=== PATIENT | female | born 1960 | race Caucasian/White ===

== ENCOUNTER → 2020-06-13 | Day surgery (SDC) | payer OTHER ==
[2020-06-07 14:53] VITALS: BMI 26.6
[~2020-06-13] MED LIST: LIDOCAINE HCL 2% JELLY 10 ML CARTRIDGE ONE
[2020-06-13 08:35] VITALS: TEMP 97.8
[2020-06-13 10:14] VITALS: BP 137/99; PULSE 90
== END | disposition home or self-care (01) ==
LOC: JASU-ENDO 07:24
PROVIDERS: ATTEND Internal Medicine Gastroenterology
PROC: 06LY4CC Occlusion of Hemorrhoidal Plexus with Extraluminal Device, Percutaneous Endoscopic Approach (ICD-10-PCS; principal; 2020-06-13 08:00)
DX: K64.8 Other hemorrhoids (principal)
CPT/HCPCS: 82962

== ENCOUNTER 2020-12-01 04:19 | Day surgery (SDC) | payer OTHER ==
[2020-11-27 14:38] VITALS: BMI 26.2
[2020-12-01] MEDS ORDERED: SODIUM CHLORIDE 0.9% P/F 10 ML VIAL IJ ONE (07:34)
[2020-12-01] MEDS ORDERED: LIDOCAINE HCL 1%, 10 MG/ML (20ML VIAL) INF ONE (15:40)
[2020-12-01] MEDS ORDERED: IOHEXOL 180 MG/1 ML ML IJ ONE (15:41)
[2020-12-01] MEDS ORDERED: DEXAMETHASONE SOD PHOSPHATE 20 MG/5 ML VIAL IM ONE (15:41)
[2020-12-01 16:10] VITALS: BP 154/89; PULSE 97; TEMP 97.7
== END 2020-12-01 16:50 | disposition home or self-care (01) ==
LOC: JASU-SURG 04:19
PROVIDERS: ATTEND Pain Medicine Pain Medicine
PROC: 3E0R33Z Introduction of Anti-inflammatory into Spinal Canal, Percutaneous Approach (ICD-10-PCS; 2020-12-01)
PROC: B01BYZZ Fluoroscopy of Spinal Cord using Other Contrast (ICD-10-PCS; 2020-12-01)
PROC: 3E0R3BZ Introduction of Anesthetic Agent into Spinal Canal, Percutaneous Approach (ICD-10-PCS; principal; 2020-12-01 16:00)
DX: M48.061 Spinal stenosis, lumbar region without neurogenic claudication (principal); M54.16 Radiculopathy, lumbar region
CPT/HCPCS: 76000-TC-FY

== ENCOUNTER → 2021-03-23 | Day surgery (SDC) | payer OTHER ==
[2021-03-22 12:12] VITALS: BMI 26.2
[~2021-03-23] MED LIST changes: +DEXAMETHASONE SOD PHOSPHATE/PF 10 MG/ML SDV ONE; -LIDOCAINE HCL 2% JELLY 10 ML CARTRIDGE ONE; +SODIUM CHLORIDE 0.9% P/F 10 ML VIAL IJ ONE
== END | disposition home or self-care (01) ==
LOC: JASU-SURG 04:09
PROVIDERS: ATTEND Pain Medicine Pain Medicine
DX: Z53.8 Procedure and treatment not carried out for other reasons (principal)

== ENCOUNTER 2021-04-06 04:57 | Day surgery (SDC) | payer OTHER ==
[2021-04-03 12:39] VITALS: BMI 26.6
[2021-04-06] MEDS ORDERED: DEXAMETHASONE SOD PHOSPHATE 10 MG/1 ML VIAL IVPUSH ONE (15:43)
[2021-04-06] MEDS ORDERED: IOHEXOL 180 MG/1 ML ML IJ ONE (15:43)
[2021-04-06] MEDS ORDERED: LIDOCAINE HCL 1% PRESERVATIVE FREE - 30ML VIAL IJ ONE (15:43)
[2021-04-06 17:33] VITALS: TEMP 97.8
[2021-04-06 17:40] VITALS: BP 140/80; PULSE 80
== END 2021-04-06 18:02 | disposition home or self-care (01) ==
LOC: JASU-SURG 04:57
PROVIDERS: ATTEND Pain Medicine Pain Medicine
PROC: 3E0R33Z Introduction of Anti-inflammatory into Spinal Canal, Percutaneous Approach (ICD-10-PCS; 2021-04-06)
PROC: B01BYZZ Fluoroscopy of Spinal Cord using Other Contrast (ICD-10-PCS; 2021-04-06)
PROC: 3E0R3BZ Introduction of Anesthetic Agent into Spinal Canal, Percutaneous Approach (ICD-10-PCS; principal; 2021-04-06 15:00)
DX: M54.16 Radiculopathy, lumbar region (principal)
CPT/HCPCS: J1100

== ENCOUNTER 2021-11-13 05:18 | Day surgery (SDC) | payer OTHER ==
[2021-11-09 16:44] VITALS: BMI 26.6
[2021-11-13 11:01] VITALS: TEMP 97.9
[2021-11-13 11:27] VITALS: BP 140/75
[2021-11-13 11:45] VITALS: PULSE 82
== END 2021-11-13 12:07 | disposition home or self-care (01) ==
LOC: JASU-ENDO 05:18
PROVIDERS: ATTEND Internal Medicine Gastroenterology
PROC: 0DBM8ZX Excision of Descending Colon, Via Natural or Artificial Opening Endoscopic, Diagnostic (ICD-10-PCS; 2021-11-13)
PROC: 0DBL8ZX Excision of Transverse Colon, Via Natural or Artificial Opening Endoscopic, Diagnostic (ICD-10-PCS; 2021-11-13)
PROC: 0DBN8ZX Excision of Sigmoid Colon, Via Natural or Artificial Opening Endoscopic, Diagnostic (ICD-10-PCS; 2021-11-13)
PROC: 0DBK8ZX Excision of Ascending Colon, Via Natural or Artificial Opening Endoscopic, Diagnostic (ICD-10-PCS; principal; 2021-11-13 09:30)
DX: Z12.11 Encounter for screening for malignant neoplasm of colon (principal); Z86.010 Personal history of colon polyps; K57.30 Diverticulosis of large intestine without perforation or abscess without bleeding; D12.2 Benign neoplasm of ascending colon; D12.4 Benign neoplasm of descending colon; D12.7 Benign neoplasm of rectosigmoid junction; D12.5 Benign neoplasm of sigmoid colon; D12.3 Benign neoplasm of transverse colon; K64.8 Other hemorrhoids; E11.9 Type 2 diabetes mellitus without complications; I10 Essential (primary) hypertension; D64.9 Anemia, unspecified; K21.9 Gastro-esophageal reflux disease without esophagitis
CPT/HCPCS: 88305-TC

== ENCOUNTER 2021-12-18 04:52 | Day surgery (SDC) | payer OTHER ==
[2021-12-12 15:29] VITALS: BMI 26.6
[2021-12-18 11:15] VITALS: TEMP 97.1
[2021-12-18 12:10] VITALS: BP 148/86; PULSE 79
== END 2021-12-18 12:12 | disposition home or self-care (01) ==
LOC: JASU-ENDO 04:52
PROVIDERS: ATTEND Internal Medicine Gastroenterology
PROC: 0DB78ZX Excision of Stomach, Pylorus, Via Natural or Artificial Opening Endoscopic, Diagnostic (ICD-10-PCS; 2021-12-18)
PROC: 0DB68ZX Excision of Stomach, Via Natural or Artificial Opening Endoscopic, Diagnostic (ICD-10-PCS; 2021-12-18)
PROC: 0DB38ZX Excision of Lower Esophagus, Via Natural or Artificial Opening Endoscopic, Diagnostic (ICD-10-PCS; 2021-12-18)
PROC: 0DB48ZX Excision of Esophagogastric Junction, Via Natural or Artificial Opening Endoscopic, Diagnostic (ICD-10-PCS; principal; 2021-12-18 10:30)
DX: K29.50 Unspecified chronic gastritis without bleeding (principal); D13.0 Benign neoplasm of esophagus; K44.9 Diaphragmatic hernia without obstruction or gangrene; K25.9 Gastric ulcer, unspecified as acute or chronic, without hemorrhage or perforation; E11.9 Type 2 diabetes mellitus without complications; I10 Essential (primary) hypertension; J44.9 Chronic obstructive pulmonary disease, unspecified; Z79.84 Long term (current) use of oral hypoglycemic drugs
CPT/HCPCS: 82962; 88104; 88305-TC; 88342-TC

== ENCOUNTER 2023-05-13 14:19 | Emergency (ER) | payer OTHER ==
[2023-05-13 14:29] VITALS: TEMP 98.7; BMI 25.7
[2023-05-13 17:13] VITALS: BP 158/94; PULSE 83; RESP 15
== END 2023-05-13 16:45 | disposition home or self-care (01) ==
LOC: JER 14:19
DX: F32.A Depression, unspecified (principal)
CPT/HCPCS: 99283-25

== ENCOUNTER 2023-06-03 05:26 | Day surgery (SDC) | payer OTHER ==
[2023-06-02 14:54] VITALS: BMI 22.4
[2023-06-03] MEDS ORDERED: LIDOCAINE HCL/PF 1% SDV 5ML VIAL ONE (07:53)
[2023-06-03] MEDS ORDERED: DEXAMETHASONE SOD PHOSPHATE 10 MG/1 ML VIAL ONE (07:54)
[2023-06-03] MEDS ORDERED: LIDOCAINE HCL 1% PRESERVATIVE FREE - 30ML VIAL IJ ONE (10:52)
[2023-06-03] MEDS ORDERED: IOHEXOL 180 MG/1 ML ML IJ ONE (10:53)
[2023-06-03] MEDS ORDERED: DEXAMETHASONE SOD PHOSPHATE 10 MG/1 ML VIAL IVPUSH ONE (10:54)
[2023-06-03 11:26] VITALS: TEMP 97
[2023-06-03] MEDS ORDERED: ACETAMINOPHEN 500 MG TABLET (FP) ONE (11:45)
[2023-06-03 12:42] VITALS: BP 142/80; PULSE 92; RESP 18
[2023-06-03] MEDS ORDERED: ACETAMINOPHEN 500 MG TABLET (FP) PO PRN (16:11)
== END 2023-06-03 12:45 | disposition home or self-care (01) ==
LOC: JASU-SURG 05:26
PROVIDERS: ATTEND Pain Medicine Pain Medicine
PROC: 3E0R3BZ Introduction of Anesthetic Agent into Spinal Canal, Percutaneous Approach (ICD-10-PCS; 2023-06-03)
PROC: 3E0R33Z Introduction of Anti-inflammatory into Spinal Canal, Percutaneous Approach (ICD-10-PCS; principal; 2023-06-03 11:15)
DX: M54.16 Radiculopathy, lumbar region (principal)
CPT/HCPCS: 76000-TC-FY; J1100

== ENCOUNTER 2023-12-26 04:08 | Day surgery (SDC) | payer OTHER ==
[2023-12-25 09:01] VITALS: BMI 23.3
[~2023-12-26 04:08] MED LIST changes: +ACETAMINOPHEN 500 MG TABLET (FP) PO PRN; -DEXAMETHASONE SOD PHOSPHATE/PF 10 MG/ML SDV ONE; -SODIUM CHLORIDE 0.9% P/F 10 ML VIAL IJ ONE
[2023-12-26] MEDS ORDERED: DEXAMETHASONE SOD PHOSPHATE 10 MG/1 ML VIAL ONE ×2 (07:41→13:26)
[2023-12-26] MEDS ORDERED: LIDOCAINE HCL/PF 1% SDV 5ML VIAL ONE (07:41)
[2023-12-26 13:18] VITALS: RESP 20
[2023-12-26] MEDS ORDERED: LIDOCAINE HCL/PF 2% SDV 5ML VIAL ONE (13:26)
[2023-12-26] MEDS: DEXAMETHASONE SOD PHOSPHATE 10 MG/1 ML VIAL IVPUSH ONE ×2 (13:47)
[2023-12-26] MEDS: IOHEXOL 180 MG/1 ML ML IJ ONE ×2 (13:47)
[2023-12-26] MEDS: LIDOCAINE 1% P/F 10 MG/ML VIAL INF ONE ×2 (13:47)
[2023-12-26 15:10] VITALS: BP 149/93; PULSE 84; TEMP 97.8
[2023-12-26] MEDS ORDERED: ACETAMINOPHEN 500 MG TABLET (FP) PO PRN (15:26)
== END 2023-12-26 14:42 | disposition home or self-care (01) ==
LOC: JASU-SURG 04:08
PROVIDERS: ATTEND Pain Medicine Pain Medicine
PROC: 3E0R3BZ Introduction of Anesthetic Agent into Spinal Canal, Percutaneous Approach (ICD-10-PCS; 2023-12-26)
PROC: 3E0R33Z Introduction of Anti-inflammatory into Spinal Canal, Percutaneous Approach (ICD-10-PCS; principal; 2023-12-26 14:45)
DX: M54.16 Radiculopathy, lumbar region (principal)
CPT/HCPCS: 76000-TC-FY; J1100